=== PATIENT | female | born 1985 | race Caucasian/White ===

== ENCOUNTER 2018-08-19 10:59 | Outpatient (CLI) | payer OTHER | END 2018-08-19 11:42 | disposition home or self-care (01) | LOC: NST 10:59 | DX: Z34.83 Encounter for supervision of other normal pregnancy, third trimester (principal) ==

== ENCOUNTER 2018-09-01 08:26 | Outpatient (CLI) | payer OTHER | END 2018-09-01 09:14 | disposition home or self-care (01) | LOC: NST 08:26 | DX: Z34.83 Encounter for supervision of other normal pregnancy, third trimester (principal) ==

== ENCOUNTER 2018-09-08 14:36 | Outpatient (CLI) | payer OTHER | END 2018-09-08 16:37 | disposition home or self-care (01) | LOC: NST 14:36 | DX: Z34.83 Encounter for supervision of other normal pregnancy, third trimester (principal) ==

== ENCOUNTER 2018-09-15 10:06 | Outpatient (CLI) | payer OTHER | END 2018-09-15 10:27 | disposition home or self-care (01) | LOC: NST 10:06 | DX: Z34.83 Encounter for supervision of other normal pregnancy, third trimester (principal) ==

== ENCOUNTER → 2018-09-22 | Outpatient (CLI) | payer OTHER | END | disposition home or self-care (01) | LOC: NST 13:05 | DX: Z34.83 Encounter for supervision of other normal pregnancy, third trimester (principal) ==

== ENCOUNTER 2018-09-30 10:02 | Outpatient (CLI) | payer OTHER | END 2018-09-30 10:34 | disposition home or self-care (01) | LOC: NST 10:02 | DX: Z34.83 Encounter for supervision of other normal pregnancy, third trimester (principal) ==

== ENCOUNTER 2018-10-10 10:36 | Outpatient (CLI) | payer OTHER | END 2018-10-10 11:31 | disposition home or self-care (01) | LOC: NST 10:36 | DX: Z34.83 Encounter for supervision of other normal pregnancy, third trimester (principal) ==

== ENCOUNTER 2018-10-13 09:12 | Outpatient (CLI) | payer OTHER | END 2018-10-13 09:56 | disposition home or self-care (01) | LOC: NST 09:12 | DX: Z34.83 Encounter for supervision of other normal pregnancy, third trimester (principal) ==

== ENCOUNTER → 2018-10-18 | Outpatient (CLI) | payer OTHER ==
[~2018-10-18] MED LIST: PEPCID20 MG PO; PRENATAL TABLE1 EAC1 PO
== END | disposition home or self-care (01) ==
LOC: NST 16:46
DX: Z34.83 Encounter for supervision of other normal pregnancy, third trimester (principal)

== ENCOUNTER 2018-10-21 13:47 | Inpatient (IN) | payer OTHER ==
[~2018-10-21] VITALS: Ht 152.4 cm; Wt 72.6 kg
[2018-10-22] MEDS ORDERED: PRENATAL TABLE1 EAC1 PO (08:16)
[2018-10-22] MEDS ORDERED: PEPCID20 MG PO (08:17)
== END 2018-10-24 13:20 | disposition home or self-care (01) | DRG 807 ==
LOC: OB/GYN 13:47 → LDR 10-22 06:22 → OB/GYN 10-22 19:19
PROVIDERS: ADMIT Obstetrics & Gynecology Maternal & Fetal Medicine
PROC: 10E0XZZ Delivery of Products of Conception, External Approach (ICD-10-PCS; principal; 2018-10-22)
PROC: 0KQM0ZZ Repair Perineum Muscle, Open Approach (ICD-10-PCS; 2018-10-22)
PROC: 3E033VJ Introduction of Other Hormone into Peripheral Vein, Percutaneous Approach (ICD-10-PCS; 2018-10-22)
PROC: 4A1HXCZ Monitoring of Products of Conception, Cardiac Rate, External Approach (ICD-10-PCS; 2018-10-22)
DX: O70.1 Second degree perineal laceration during delivery (principal); Z37.0 Single live birth; Z3A.40 40 weeks gestation of pregnancy; Z22.330 Carrier of Group B streptococcus